=== PATIENT | female | born 1975 | race Caucasian/White ===

== ENCOUNTER 2018-11-05 15:20 | Emergency (ER) | payer OTHER ==
--- NOTE | 2018-11-05 17:42 | RAD REPORT ---
EXAM DESCRIPTION: RAD - Foot Right 3 View - 11/05/2018 5:30 pm CLINICAL HISTORY: Right foot pain FINDINGS: No fracture or dislocation is seen Moderate to large spurs extend off of posterior and inferior aspect of the calcaneus
--- NOTE | 2018-11-05 17:49 | EDPHYS ---
Physician Documentation [facility] Name: Beatriz Chapman Age: 43 yrs Sex: Female : 1975 Arrival Date: 11/05/2018 Time: 15:24 Bed 12 Private MD: ED Physician Giacomo Ruelas HPI: 11/05 17:24 This 43 yrs old Female presents to ER via Ambulatory with complaints of Feet rn Swelling. 17:24 The patient presents with pain. The complaints affect the right foot. Onset: The rn symptoms/episode began/occurred 3 day(s) ago. Modifying factors: the symptoms are aggravated by weight bearing. Severity of symptoms: At their worst the symptoms were mild, in the emergency department the symptoms are unchanged. The patient has not experienced similar symptoms in the past. Reports stepped wrong when getting off bed a few days ago, has been having right foot pain since then, hurts to walk on it, no known gout or bone problems. No other pain.. 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 - Social history:: Smoking status: Patient/guardian denies using tobacco, Patient/guardian denies using alcohol, street drugs. - Ebola Screening: : Patient negative for fever greater than or equal to 101.5 degrees Fahrenheit, and additional compatible Ebola Virus Disease symptoms Patient denies exposure to infectious person Patient denies travel to an Ebola-affected area in the 21 days before illness onset No symptoms or risks identified at this time. - Family history:: not pertinent. - Hospitalizations: : No recent hospitalization is reported. ROS: 17:24 MS/Extremity: Negative for deformity Skin: Negative for rash, and discoloration rn Exam: 17:24 Constitutional: This is a well developed, well nourished patient who is awake, alert, rn and in no acute distress. MS/ Extremity: Pulses equal, no cyanosis. Neurovascular intact. + mild tenderness at base of 5th metatarsal, no deformity, no skin changes. No open wounds. Vital Signs: 15:44 BP 174 / 97; Pulse 80; Resp 16; Temp 98.7; Pulse Ox 100% on R/A; Weight 135.17 kg; Height 5 ft. 2 in. (157.48 cm); Pain 6/10; 17:50 BP 155 / 91; Pulse 78; Resp 16; Pulse Ox 98% on R/A; Pain 6/10; ls4 15:44 Body Mass Index 54.50 (135.17 kg, 157.48 cm) MDM: 16:22 Patient medically screened. rn 17:47 Differential diagnosis: fracture, sprain, arthritis. Data reviewed: vital signs, nurses rn notes, radiologic studies, plain films, and as a result, I will discharge patient. Counseling: I had a detailed discussion with the patient and/or guardian regarding: the historical points, exam findings, and any diagnostic results supporting the discharge/admit diagnosis, radiology results, the need for outpatient follow up, to return to the emergency department if symptoms worsen or persist or if there are any questions or concerns that arise at home. Special discussion: I discussed with the patient/guardian in detail that at this point there is no indication for admission to the hospital. It is understood, however, that if the symptoms persist or worsen the patient needs to return immediately for re-evaluation. 11/05 16:33 Order name: XRAY Foot RIGHT 3 View; Complete Time: 17:47 rn Administered Medications: No medications were administered Disposition: 11/05/18 17:48 Discharged to Home. Impression: Unspecified sprain of right foot. - Condition is Stable. - Discharge Instructions: Foot Sprain, Heel Spur. - Medication Reconciliation Form, Thank You Letter, Antibiotic Education, Prescription Opioid Use form. - Follow up: Private Physician; When: As needed; Reason: Recheck today's complaints, Re-evaluation by your physician. - Problem is an ongoing problem. - Symptoms have improved. Signatures: Dispatcher [employer] EDMS Karol Casas RN RN Giacomo Ruelas MD MD rn Stewart, Lisa, RN RN ls4 Corrections: (The following items were deleted from the chart) 17:58 17:48 11/05/2018 17:48 Discharged to Home. Impression: Unspecified sprain of right ls4 foot. Condition is Stable. Forms are Medication Reconciliation Form, Thank You Letter, Antibiotic Education, Prescription Opioid Use. Follow up: Private Physician; When: As needed; Reason: Recheck today's complaints, Re-evaluation by your physician. Problem is an ongoing problem. Symptoms have improved. rn
--- NOTE | 2018-11-05 17:49 | ER ---
Nurse's Notes [facility] Name: Beatriz Chapman Age: 43 yrs Sex: Female : 1975 Arrival Date: 11/05/2018 Time: 15:24 Bed 12 Private MD: Diagnosis: Unspecified sprain of right foot Presentation: 11/05 15:41 Presenting complaint: Patient states: R foot pain and swelling on and off for several ch days, no trauma. Transition of care: patient was not received from another setting of care. Onset of symptoms was November 02, 2018. Risk Assessment: Do you want to hurt yourself or someone else? Patient reports no desire to harm self or others. Initial Sepsis Screen: Does the patient meet any 2 criteria? No. Patient's initial sepsis screen is negative. Does the patient have a suspected source of infection? No. Patient's initial sepsis screen is negative. Care prior to arrival: Medication(s) given: Motrin, 1230. 15:41 Method Of Arrival: Ambulatory 15:41 Acuity: DANIELA 3 ch Triage Assessment: 15:44 General: Appears in no apparent distress. comfortable, Behavior is calm, cooperative, ch appropriate for age. Pain: Complains of pain in right foot Pain currently is 6 out of 10 on a pain scale. 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 - Social history:: Smoking status: Patient/guardian denies using tobacco, Patient/guardian denies using alcohol, street drugs. - Ebola Screening: : Patient negative for fever greater than or equal to 101.5 degrees Fahrenheit, and additional compatible Ebola Virus Disease symptoms Patient denies exposure to infectious person Patient denies travel to an Ebola-affected area in the 21 days before illness onset No symptoms or risks identified at this time. - Family history:: not pertinent. - Hospitalizations: : No recent hospitalization is reported. Screenin:45 Abuse screen: Denies threats or abuse. Denies injuries from another. Nutritional ls4 screening: No deficits noted. Tuberculosis screening: No symptoms or risk factors identified. Fall Risk None identified. Vital Signs: 15:44 BP 174 / 97; Pulse 80; Resp 16; Temp 98.7; Pulse Ox 100% on R/A; Weight 135.17 kg; Height 5 ft. 2 in. (157.48 cm); Pain 6/10; 17:50 BP 155 / 91; Pulse 78; Resp 16; Pulse Ox 98% on R/A; Pain 6/10; ls4 15:44 Body Mass Index 54.50 (135.17 kg, 157.48 cm) ED Course: 15:24 Patient arrived in ED. mr 15:43 Triage completed. 15:44 Arm band placed on left wrist. Patient placed in an exam room, on a stretcher. 16:03 Bessie Delgadillo, LE is Primary Nurse. ls4 16:22 Giacomo Ruelas MD is Attending Physician. rn 17:36 XRAY Foot RIGHT 3 View In Process Unspecified. EDMS 17:45 Patient has correct armband on for positive identification. Placed in gown. Bed in low ls4 position. Call light in reach. Side rails up X 1. Warm blanket given. 17:46 No provider procedures requiring assistance completed. Patient did not have IV access ls4 during this emergency room visit. Administered Medications: No medications were administered Outcome: 17:48 Discharge ordered by . rn 17:58 Patient left the ED. ls4 Signatures: Dispatcher [employer] EDMS Karol Casas RN RN Lety Trent mr Giacomo Ruelas MD MD rn Stewart, Lisa, RN RN ls4 Corrections: (The following items were deleted from the chart) 15:43 15:41 Care prior to arrival: None. [facility]
[2018-11-05 18:22] VITALS: TEMP 98.7
[2018-11-05 18:24] VITALS: BP 155/91; O2SAT 98
== END 2018-11-05 17:58 | disposition home or self-care (01) ==
LOC: ER 15:20
DX: S93.601A Unspecified sprain of right foot, initial encounter (principal); X58.XXXA Exposure to other specified factors, initial encounter; Y93.89 Activity, other specified; Y92.003 Bedroom of unspecified non-institutional (private) residence as the place of occurrence of the external cause; Z88.0 Allergy status to penicillin
CPT/HCPCS: 99282

== ENCOUNTER 2019-02-26 11:01 | Emergency (ER) | payer OTHER ==
--- NOTE | 2019-02-26 11:34 | ER ---
Nurse's Notes [facility] Name: Beatriz Chapman Age: 43 yrs Sex: Female : 1975 Arrival Date: 02/26/2019 Time: 11:03 Bed 19 Private MD: Aj Aguiar Diagnosis: Low back pain Presentation: 02/26 11:08 Presenting complaint: Patient states: Low back pain for 6 months that got worse 2 days aj ago. Managed with Ibuprofen. Ambulated with smooth steady gait to triage. Care prior to arrival: None. 11:08 Acuity: DANIELA 4 aj 11:30 Transition of care: patient was not received from another setting of care. Onset of iw symptoms was September 2018. Risk Assessment: Do you want to hurt yourself or someone else? Patient reports no desire to harm self or others. Initial Sepsis Screen: Does the patient meet any 2 criteria? No. Patient's initial sepsis screen is negative. Does the patient have a suspected source of infection? No. Patient's initial sepsis screen is negative. 11:30 Method Of Arrival: Ambulatory iw 19:25 Onset of symptoms is unknown. iw Triage Assessment: 11:09 General: Appears in no apparent distress. comfortable, Behavior is calm, cooperative, aj appropriate for age. Pain: Complains of pain in low back area. Neuro: Level of Consciousness is awake, alert, obeys commands, Oriented to person, place, time, situation, Appropriate for age. Respiratory: Airway is patent Respiratory effort is even, unlabored, Respiratory pattern is regular, symmetrical. Derm: Skin is intact, is healthy with good turgor, Skin is pink, warm \T\ dry. normal. Musculoskeletal: Circulation, motion, and sensation intact. Range of motion: intact in all extremities, Reports pain in low back area. 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 - Social history:: Smoking status: unknown. - Ebola Screening: : Patient negative for fever greater than or equal to 101.5 degrees Fahrenheit, and additional compatible Ebola Virus Disease symptoms Patient denies exposure to infectious person Patient denies travel to an Ebola-affected area in the 21 days before illness onset No symptoms or risks identified at this time. Screenin:53 Abuse screen: Denies threats or abuse. Denies injuries from another. Nutritional iw screening: No deficits noted. Tuberculosis screening: No symptoms or risk factors identified. Fall Risk None identified. Assessment: 11:30 General: Appears in no apparent distress. Behavior is calm, cooperative. Pain: iw Complains of pain in low back area. Neuro: Level of Consciousness is awake, alert, obeys commands. Cardiovascular: Patient's skin is warm and dry. Respiratory: Respiratory effort is even, unlabored, Respiratory pattern is regular, symmetrical. GI: No signs and/or symptoms were reported involving the gastrointestinal system. Derm: Skin is intact, is healthy with good turgor. Musculoskeletal: Range of motion: intact in all extremities. Vital Signs: 11:09 BP 189 / 74; Pulse 75; Resp 16; Temp 98.1; Pulse Ox 100% on R/A; Weight 131.54 kg; aj Height 5 ft. 1 in. (154.94 cm); 11:09 Body Mass Index 54.79 (131.54 kg, 154.94 cm) aj ED Course: 11:03 Patient arrived in ED. as 11:03 Aj Aguiar MD is Private Physician. as 11:08 Patient has correct armband on for positive identification. iw 11:09 Triage completed. aj 11:11 Arm band placed on left wrist. Patient placed in waiting room, Patient notified of wait aj time. 11:12 [facility]C [facility]. kb 11:12 Aubrey Arias MD is Attending Physician. kb 11:26 Sherrill See, RN is Primary Nurse. iw 11:53 No provider procedures requiring assistance completed. Patient did not have IV access iw during this emergency room visit. Administered Medications: 11:44 Drug: predniSONE 40 mg Route: PO; iw Outcome: 11:33 Discharge ordered by MD. kb 11:53 Discharged to home ambulatory. iw 11:53 Condition: good 11:53 Discharge instructions given to patient, Instructed on discharge instructions, follow up and referral plans. medication usage, Demonstrated understanding of instructions, follow-up care, medications, Prescriptions given X 2. 11:54 Patient left the ED. iw Signatures: Elizabeth Smith FNP-C FNP-Ckb Myers, Amanda, RN RN Stormy Earl as Sherrill See RN RN iw Corrections: (The following items were deleted from the chart) : 11:08 Presenting complaint: Patient states: Low back pain for 6 months that got worse 2 aj days ago. Managed with Ibuprofen marty : 11:09 Allergies: PENICILLINS; marty iw
--- NOTE | 2019-02-26 11:34 | EDPHYS ---
Physician Documentation [facility] Name: Beatriz Chapman Age: 43 yrs Sex: Female : 1975 Arrival Date: 02/26/2019 Time: 11:03 Bed 19 Private MD: Aj Aguiar ED Physician Aubrey Arias HPI: 02/26 11:19 This 43 yrs old Female presents to ER via Unassigned with complaints of Back kb Pain. 11:19 The patient presents with pain that is chronic, with no known mechanism of injury. The kb symptoms are located in the low back. Onset: The symptoms/episode began/occurred 6 month(s) ago. The pain does not radiate. Associated signs and symptoms: Pertinent positives: none. The problem was sustained from unknown cause. Modifying factors: The patient symptoms are alleviated by nothing, the patient symptoms are aggravated by any movement. Severity of symptoms: At their worst the symptoms were moderate, in the emergency department the symptoms are unchanged. The patient has not experienced similar symptoms in the past. The patient has not recently seen a physician. Pt reports pain across entire low back for 6+ months. States she had been taking 800mg ibuprofen up to 6 times per day, but it hasn't been working for the past 2 days. Denies injury or trauma. Worse when bending. Denies urinary symptoms. Has not seen anyone for this pain before. . 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 - Social history:: Smoking status: unknown. - Ebola Screening: : Patient negative for fever greater than or equal to 101.5 degrees Fahrenheit, and additional compatible Ebola Virus Disease symptoms Patient denies exposure to infectious person Patient denies travel to an Ebola-affected area in the 21 days before illness onset No symptoms or risks identified at this time. ROS: 11:18 Constitutional: Negative for fever, chills, and weight loss, Cardiovascular: Negative kb for chest pain, palpitations, and edema, Respiratory: Negative for shortness of breath, cough, wheezing, and pleuritic chest pain, Abdomen/GI: Negative for abdominal pain, nausea, vomiting, diarrhea, and constipation, : Negative for injury, bleeding, discharge, and swelling, MS/Extremity: Negative for injury and deformity, Skin: Negative for injury, rash, and discoloration, Neuro: Negative for headache, weakness, numbness, tingling, and seizure. 11:18 Back: Positive for pain at rest, pain with movement, of the low back area. Exam: 11:18 Constitutional: This is a well developed, well nourished patient who is awake, alert, kb and in no acute distress. Head/Face: Normocephalic, atraumatic. Chest/axilla: Normal chest wall appearance and motion. Nontender with no deformity. No lesions are appreciated. Cardiovascular: Regular rate and rhythm with a normal S1 and S2. No gallops, murmurs, or rubs. Normal PMI, no JVD. No pulse deficits. Respiratory: Lungs have equal breath sounds bilaterally, clear to auscultation and percussion. No rales, rhonchi or wheezes noted. No increased work of breathing, no retractions or nasal flaring. Abdomen/GI: Soft, non-tender, with normal bowel sounds. No distension or tympany. No guarding or rebound. No evidence of tenderness throughout. Skin: Warm, dry with normal turgor. Normal color with no rashes, no lesions, and no evidence of cellulitis. MS/ Extremity: Pulses equal, no cyanosis. Neurovascular intact. Full, normal range of motion. Neuro: Awake and alert, GCS 15, oriented to person, place, time, and situation. Cranial nerves II-XII grossly intact. Motor strength 5/5 in all extremities. Sensory grossly intact. Cerebellar exam normal. Normal gait. 11:18 Back: pain, that is moderate, of the low back area, ROM is normal, normal spinal alignment noted, CVA tenderness, is absent. Vital Signs: 11:09 BP 189 / 74; Pulse 75; Resp 16; Temp 98.1; Pulse Ox 100% on R/A; Weight 131.54 kg; aj Height 5 ft. 1 in. (154.94 cm); 11:09 Body Mass Index 54.79 (131.54 kg, 154.94 cm) aj MDM: 11:12 Patient medically screened. kb 11:17 Data reviewed: vital signs, nurses notes. Data interpreted: Pulse oximetry: on room air kb is 100 %. Interpretation: normal. Counseling: I had a detailed discussion with the patient and/or guardian regarding: the historical points, exam findings, and any diagnostic results supporting the discharge/admit diagnosis, lab results, the need for outpatient follow up, a family practitioner, to return to the emergency department if symptoms worsen or persist or if there are any questions or concerns that arise at home. 02/26 11:33 Order name: Urine Dipstick--Ancillary (enter results) ms 02/26 11:17 Order name: Urine Dipstick-Ancillary (obtain specimen); Complete Time: 11:27 kb Administered Medications: 11:44 Drug: predniSONE 40 mg Route: PO; iw Disposition: 17:14 Co-signature as Attending Physician, Aubrey Arias MD I agree with the assessment and kdr plan of care. Disposition: 02/26/19 11:33 Discharged to Home. Impression: Low back pain. - Condition is Stable. - Discharge Instructions: Back Injury Prevention, [id number], Back Pain, Adult, [id number], Back Exercises, [id number]. - Prescriptions for Prednisone 20 mg Oral Tablet - take 1 tablet by ORAL route once daily for 5 days; 5 tablet. Cyclobenzaprine 10 mg Oral Tablet - take 1 tablet by ORAL route every 8 hours As needed; 21 tablet. Tramadol 50 mg Oral Tablet - take 1 tablet by ORAL route every 8 hours as needed; 12 tablet. - Medication Reconciliation Form, Thank You Letter, Antibiotic Education, Prescription Opioid Use, Work release form form. - Follow up: Emergency Department; When: As needed; Reason: Worsening of condition. Follow up: Private Physician; When: 2 - 3 days; Reason: Recheck today's complaints, Continuance of care, Re-evaluation by your physician. Signatures: Dispatcher [employer] EDElizabeth Miguel, RACHEL-C INSPECTOR RETURNED [employer]ERIALS-Ankita Washington RN RN aj Rittger, Kevin, MD MD kdr Sherrill See RN RN iw Corrections: (The following items were deleted from the chart) 11:52 11:19 Pt reports pain across entire low back for 6+ months. kb kb 11:54 11:33 02/26/2019 11:33 Discharged to Home. Impression: Low back pain. Condition is iw Stable. Forms are Medication Reconciliation Form, Thank You Letter, Antibiotic Education, Prescription Opioid Use. Follow up: Emergency Department; When: As needed; Reason: Worsening of condition. Follow up: Private Physician; When: 2 - 3 days; Reason: Recheck today's complaints, Continuance of care, Re-evaluation by your physician. kb 19:25 11:09 Allergies: PENICILLINS; aj iw
[2019-02-26] MEDS ORDERED: predniSONE 20 MG TAB ONE (11:56)
[2019-02-26 12:07] VITALS: BP 189/74; TEMP 98.1; O2SAT 100
[2019-02-26 12:53] LABS: Urine Blood TRACE (NEG); Urine Glucose NEGATIVE (NEG); Urine Protein NEGATIVE (NEG); Urine Specific Gravity 1.015 (1.005-1.030)
== END 2019-02-26 11:54 | disposition home or self-care (01) ==
LOC: ER 11:01
DX: M54.5 Low back pain (principal); Z88.0 Allergy status to penicillin
CPT/HCPCS: 81003; 99283; J7512

== ENCOUNTER 2023-02-25 17:24 | Emergency (ER) | payer BC ==
[2023-02-25] MEDS ORDERED: IBUPROFEN 400 MG TAB ONE (18:10)
--- NOTE | 2023-02-25 19:13 | RAD REPORT ---
EXAM DESCRIPTION: RAD - Foot Right 3 View - 02/25/2023 6:39 pm CLINICAL HISTORY: PAIN COMPARISON: Foot Right 3 View dated 11/05/2018 FINDINGS: Thin lucency is seen involving the base of the fifth metatarsal compatible with a nondispl aced fracture. Large posterior and plantar calcaneal spurs. No dislocation.
--- NOTE | 2023-02-25 20:39 | ER ---
Nurse's Notes [facility] Name: Beatriz Chapman Age: 47 yrs Sex: Female : 1975 Arrival Date: 02/25/2023 Time: 17:24 Bed 11 Private MD: Aj Aguiar Diagnosis: Nondisplaced fracture of fifth metatarsal bone, right foot Presentation: 02/25 17:45 Chief complaint: Patient states: R foot pain after running to help child today. Had ll1 hurt that foot on also. Coronavirus screen: Client denies travel out of the [place] in the last 14 days. At this time, the client does not indicate any symptoms associated with coronavirus-19. Ebola Screen: Patient denies travel to an Ebola-affected area in the 21 days before illness onset. Initial Sepsis Screen: Does the patient meet any 2 criteria? No. Patient's initial sepsis screen is negative. Does the patient have a suspected source of infection? No. Patient's initial sepsis screen is negative. Risk Assessment: Do you want to hurt yourself or someone else? Patient reports no desire to harm self or others. Onset of symptoms was February 25, 2023. 17:45 Method Of Arrival: Ambulatory ll1 17:45 Acuity: DANIELA 4 ll1 Triage Assessment: 17:47 General: Appears uncomfortable, Behavior is calm, cooperative, appropriate for age. ll1 Pain: Complains of pain in R foot Quality of pain is described as aching. Musculoskeletal: Circulation, motion, and sensation intact. Capillary refill < 3 seconds. Injury Description: Bruise. Historical: - Allergies: 17:46 PENICILLINS; ll1 - PMHx: 17:46 None; ll1 - PSHx: 17:46 rotator cuff; section; ll1 - Immunization history:: Client reports receiving the 2nd dose of the Covid vaccine. - Social history:: Smoking status: Patient denies any tobacco usage or history of. Screenin:41 [facility] ED Fall Risk Assessment (Adult) Impaired Gait Yes (1 pt) Mobility Assist ll1 Device Used Yes (1 pt) Score/Fall Risk Level 0 - 2 = Low Risk Oriented to surroundings, Maintained a safe environment, Educated pt \T\ family on fall prevention, incl call for assistance when getting out of bed, Hourly rounding (assess needs \T\ fall precautionary measures) done. Abuse screen: Denies threats or abuse. Nutritional screening: No deficits noted. Tuberculosis screening: No symptoms or risk factors identified. Assessment: 18:03 Reassessment: No changes from previously documented assessment. Patient and/or family ll1 updated on plan of care and expected duration. Pain level reassessed. Patient is alert, oriented x 3, equal unlabored respirations, skin warm/dry/pink. Vital Signs: 17:45 BP 147 / 80; Pulse 89; Resp 17; Temp 98.7; Pulse Ox 100% ; Weight 87.09 kg; Height 5 ll1 ft. 2 in. ; Pain 9/10; 17:45 Body Mass Index 35.12 (87.09 kg, 157.48 cm) ll1 17:45 Pain Scale: Adult ll1 ED Course: 17:29 Patient arrived in ED. am2 17:35 Aj Aguiar MD is Private Physician. im 17:46 Triage completed. ll1 17:46 Praveen Woodruff PA is PHCP. cp 17:46 Praveen Trivedi MD is Attending Physician. cp 17:47 Arm band placed on. ll1 18:41 XRAY Foot RIGHT 3 View In Process Unspecified. EDMS 18:41 Patient has correct armband on for positive identification. Cardiac monitoring not ll1 applicable on this patient. 18:56 Regis Rosas, RN is Primary Nurse. rv 20:00 Crutch training done. Orthoglass splint: Posterior short lleg splint applied on right rv leg. 20:00 No provider procedures requiring assistance completed. Patient did not have IV access rv during this emergency room visit. 20:38 Jesse Gaxiola MD is Referral Physician. cp Administered Medications: 18:03 Drug: Ibuprofen PO 800 mg Route: PO; ll1 Medication: 18:41 VIS not applicable for this client. ll1 Outcome: 20:30 Condition: improved rv 20:30 Discharged to home with crutches, with family. rv 20:30 Discharge instructions given to patient, Instructed on discharge instructions, follow up and referral plans. medication usage, crutch walking, Demonstrated understanding of instructions, follow-up care, medications, crutch walking, Prescriptions given X 2. 20:39 Discharge ordered by . cp 21:06 Patient left the ED. rv Signatures: Dispatcher [employer] EDMS Page, Praveen, PA PA cp Marquez, Ankita am2 Regis Rosas, RN RN rv Tee El RN RN 1 Shelly Miller
--- NOTE | 2023-02-25 20:39 | EDPHYS ---
Physician Documentation [facility] Name: Beatriz Chapman Age: 47 yrs Sex: Female : 1975 Arrival Date: 02/25/2023 Time: 17:24 Bed 11 Private MD: Aj Aguiar ED Physician Praveen Trivedi HPI: 02/25 18:00 This 47 yrs old Female presents to ER via Ambulatory with complaints of Foot Injury. cp 18:00 The patient presents with pain, that is acute. The complaints affect the right foot. cp Context: resulted from a mis-step, while running, the patient can fully bear weight, the patient is able to ambulate, with moderate difficulty, Problem is a result from a previous injury: Yes. Onset: The symptoms/episode began/occurred today. Associated signs and symptoms: The patient has no apparent associated signs or symptoms. Historical: - Allergies: 17:46 PENICILLINS; ll1 - PMHx: 17:46 None; ll1 - PSHx: 17:46 rotator cuff; section; ll1 - Immunization history:: Client reports receiving the 2nd dose of the Covid vaccine. - Social history:: Smoking status: Patient denies any tobacco usage or history of. ROS: 18:05 MS/extremity: Positive for pain, tenderness, of the right foot. cp 18:05 Constitutional: Negative for body aches, chills, fever, poor PO intake. cp 18:05 Neck: Negative for pain with movement, pain at rest. 18:05 Back: Negative for pain at rest, pain with movement. 18:05 Neuro: Negative for numbness, weakness. 18:05 All other systems are negative. Exam: 18:10 Constitutional: The patient appears in no acute distress, alert, awake, well developed, cp well nourished. 18:10 Musculoskeletal/extremity: Extremities: grossly normal except: noted in the right foot: cp pain, tenderness to palpation noted lateral right foot, mild swelling, Perfusion: the extremity is normally perfused throughout, the right foot Sensation intact. Vital Signs: 17:45 BP 147 / 80; Pulse 89; Resp 17; Temp 98.7; Pulse Ox 100% ; Weight 87.09 kg; Height 5 ll1 ft. 2 in. ; Pain 9/10; 17:45 Body Mass Index 35.12 (87.09 kg, 157.48 cm) ll1 17:45 Pain Scale: Adult ll1 Procedures: 21:00 Splinting: Splint applied to right foot using Orthoglass splint, posterior short leg. cp applied by nurse. Examined by me, post splint application: neurovascular intact, Patient tolerated well. MDM: 17:49 Patient medically screened. cp 19:00 Differential diagnosis: closed fracture, sprain, dislocation. cp 20:38 Data reviewed: vital signs, nurses notes, radiologic studies, plain films. cp 20:38 I considered the following discharge prescriptions or medication management in the emergency department Medications were administered in the Emergency Department. See MAR. Counseling: I had a detailed discussion with the patient and/or guardian regarding: the historical points, exam findings, and any diagnostic results supporting the discharge/admit diagnosis, radiology results, the need for outpatient follow up, for definitive care, a orthopedic surgeon, to return to the emergency department if symptoms worsen or persist or if there are any questions or concerns that arise at home. Response to treatment: the patient's symptoms have markedly improved after treatment, and as a result, I will discharge patient. 02/25 17:49 Order name: XRAY Foot RIGHT 3 View; Complete Time: 19:35 cp 02/25 19:35 Interpretation: Report reviewed. cp 02/25 19:35 Order name: Splint - Posterior Leg; Complete Time: 20:22 cp 02/25 19:35 Order name: Crutches; Complete Time: 20:22 cp Administered Medications: 18:03 Drug: Ibuprofen PO 800 mg Route: PO; ll1 Disposition Summary: 02/25/23 20:39 Discharge Ordered Location: Home cp Problem: new cp Symptoms: have improved cp Condition: Stable cp Diagnosis - Nondisplaced fracture of fifth metatarsal bone, right foot cp Followup: cp - With: Jesse Gaxiola MD - When: 2 - 3 days - Reason: Recheck today's complaints Discharge Instructions: - Discharge Summary Sheet cp - Metatarsal Fracture cp Forms: - Medication Reconciliation Form cp - Thank You Letter cp - Antibiotic Education cp - Prescription Opioid Use cp Prescriptions: - Ibuprofen 800 mg Oral Tablet - take 1 tablet by ORAL route every 8 hours As needed take with food; 30 tablet; cp Refills: 0, Product Selection Permitted - Tramadol 50 mg Oral Tablet - take 1 tablet by ORAL route every 8 hours as needed; 12 tablet; Refills: 0, cp Product Selection Permitted Signatures: Dispatcher [employer] EDMS Praveen Woodruff PA PA cp Lewis, Lynsay, RN RN ll1
[2023-02-25 21:21] VITALS: BP 147/80; TEMP 98.7; O2SAT 100
== END 2023-02-25 21:06 | disposition home or self-care (01) ==
LOC: ER 17:24
DX: S92.354A Nondisplaced fracture of fifth metatarsal bone, right foot, initial encounter for closed fracture (principal); Y93.02 Activity, running; M79.671 Pain in right foot; Z88.0 Allergy status to penicillin
CPT/HCPCS: 99284

== ENCOUNTER 2023-07-29 14:25 | Emergency (ER) | payer BC ==
--- OUTSIDE RECORDS SUMMARY | 2023-07-29 14:51 | XMS REPORT | Continuity of Care Document ---
:1975 Author Organization [facility] t Address [address] [facility] [address] [place] [address] Care Team Providers Name Role Phone [email or web address]_S Attending Clinician Unavailable FOG_A_Provider Attending Clinician Unavailable [email or web address]_S Admitting Clinician Unavailable FOG_A_Provider Admitting Clinician Unavailable Payers Payer Name Policy Type Policy Number Effective Date Expiration Date S our[place] [id number] 2021 00:00:00 [place] ([place] Problems This patient has no known problems. Allergies, Adverse Reactions, Alerts This patient has no known allergies or adverse reactions. Medications This patient has no known medications. Procedures This patient has no known procedures. Encounters Start End Encounter Admission Attending Care Care Encounter Source Date/Time Date/Time Type Type Clinicians Facility Department ID 2023-07-03 2023-07-03 Outpatient GC_GCBZW_Ka PRIV PRIV [id number] [facility] 00:00:00 00:00:00 diyala_S [id number] Medic al 2023-02-26 2023-02-26 Outpatient FOG_A_Provi AOSM AOSM [id number] [facility] 00:00:00 00:00:00 nikos [id number] [facility] 2023-02-26 2023-02-26 Outpatient FOG_A_Provi AOSM AOSM [id number] [facility] 00:00:00 00:00:00 nikos [id number] [facility] Results This patient has no known results.
--- NOTE | 2023-07-29 16:02 | RAD REPORT ---
EXAM DESCRIPTION: CT - [id number] - 07/29/2023 3:13 pm CLINICAL HISTORY: Trauma, head and neck injury. WEAKNESS COMPARISON: No comparisons TECHNIQUE: Axial thin cut noncontrast CT images of the head were obtained. Axial thin cut noncontrast CT images of the cervical spine were obtained. Multiplanar reformatted images were generated and reviewed. All CT scans are performed using dose optimization technique as appropriate and may include automated exposure control or mA/KV adjustment according to patient size. FINDINGS: CT HEAD WITHOUT CONTRAST: No acute hemorrhage, hydrocephalus or extra-axial collection is identified.No areas of brain edema or midline shift. The paranasal sinuses are well aerated. Patchy left mastoid air cell opacification.The calvarium is i ntact. CT CERVICAL SPINE WITHOUT CONTRAST: No fracture or subluxation.Straightening of normal cervical lordosis which may be positional or secon ryan to muscle spasm. Developmental defect along the left posterior C1 arch.No prevertebral soft tiss ues swelling is identified. IMPRESSION: No acute traumatic intracranial or cervical spine findings. Straightening of normal cervical lordosis which may be positional or secondary to muscle spasm.
--- NOTE | 2023-07-29 17:35 | ER ---
Nurse's Notes [facility] Name: Beatriz Chapman Age: 48 yrs Sex: Female : 1975 Arrival Date: 07/29/2023 Time: 14:25 Bed 2 Private MD: Aj Aguiar Diagnosis: Injury of muscle(s) and tendon(s) of the rotator cuff of shoulder;Muscle weakness (generalized)-left upper arm Presentation: 07/29 14:38 Chief complaint: Patient states: LEFT UPPER ARM PAIN. STATES ON SUNDAY AFTERNOON db STARTED WITH SPASM AND TWITCHING AND THEN UNABLE TO RAISE LEFT ARM. ABLE TO MOVE HANDS. ARM FALLS IF PICKED UP. Coronavirus screen: At this time, the client does not indicate any symptoms associated with coronavirus-19. Coronavirus screen: Vaccine status: Patient reports receiving the 2nd dose of the covid vaccine. Client denies travel out of the [place] in the last 14 days. Ebola Screen: Patient negative for fever greater than or equal to 101.5 degrees Fahrenheit, and additional compatible Ebola Virus Disease symptoms Patient denies exposure to infectious person. Patient denies travel to an Ebola-affected area in the 21 days before illness onset. No symptoms or risks identified at this time. Initial Sepsis Screen: Does the patient meet any 2 criteria? No. Patient's initial sepsis screen is negative. Does the patient have a suspected source of infection? No. Patient's initial sepsis screen is negative. Risk Assessment: Do you want to hurt yourself or someone else? Patient reports no desire to harm self or others. Onset of symptoms was July 25, 2023. 14:38 Method Of Arrival: Ambulatory db 14:38 Acuity: DANIELA 3 db Triage Assessment: 14:41 General: Appears in no apparent distress. comfortable, Behavior is calm, cooperative. db Neuro: Level of Consciousness is awake, alert, obeys commands, Oriented to person, place, time, situation. Respiratory: Airway is patent Respiratory effort is even, unlabored, Respiratory pattern is regular, symmetrical. Musculoskeletal: Reports weakness in left arm since X 4 DAYS. Historical: - Allergies: 14:41 PENICILLINS; db - PSHx: 14:41 section; rotator cuff; db - Immunization history:: Adult Immunizations unknown. - Social history:: Smoking status: Patient denies any tobacco usage or history of. Screenin:29 [facility] ED Fall Risk Assessment (Adult) History of falling in the last 3 months, ph including since admission No falls in past 3 months (0 pts). Abuse screen: Denies threats or abuse. Denies injuries from another. Nutritional screening: No deficits noted. Tuberculosis screening: No symptoms or risk factors identified. Vital Signs: 14:38 BP 138 / 83; Pulse 79; Resp 16; Temp 99(O); Pulse Ox 100% on R/A; Weight 90.26 kg; db Height 5 ft. 3 in. ; Pain 8/10; 14:38 Body Mass Index 35.25 (90.26 kg, 160.02 cm) db 14:38 Pain Scale: Adult db NIH Stroke Scale Scores: 14:43 NIHSS Score: 2 db ED Course: 14:27 Patient arrived in ED. as 14:28 Aj Aguiar MD is Private Physician. as 14:40 Triage completed. db 14:42 Arm band placed on right wrist. Patient placed in waiting room. db 14:45 Angie Olivas FNP-C is PHCP. snw 14:45 Praveen Trivedi MD is Attending Physician. snw 15:15 CT Head C Spine In Process Unspecified. EDMS 17:28 Elisa Mejia, RN is Primary Nurse. ph 17:31 Patient has correct armband on for positive identification. Bed in low position. Call ph light in reach. Side rails up X 1. Pulse ox on. NIBP on. Door closed. Noise minimized. Warm blanket given. 17:34 Jesse Gaxiola MD is Referral Physician. snw Administered Medications: 17:46 Drug: Diazepam PO 5 mg PO once Route: PO; ph 17:46 Drug: predniSONE PO 40 mg PO once Route: PO; ph 17:46 Drug: Famotidine PO 20 mg PO once Route: PO; ph Medication: 17:31 VIS not applicable for this client. ph Outcome: 17:35 Discharge ordered by . snw 18:35 Patient left the ED. ls5 NIH Stroke Scale - NIH Stroke Score Date: 07/29/2023 Time: 14:43 Total Score = 2 10. Dysarthria (speech clarity - read or repeat words) - 0(Normal) 11. Extinction and Inattention (visual/tactile/auditory/spatial/personal) - 0(No abnormality) 1a. Level of Consciousness (LOC) - 0(Alert) 1b. Level of Consciousness (LOC) (Month \T\ Age) - 0(Both) 1c. LOC Commands (Open \T\ Closes Eyes/Supervisor Metal Furniture Assembly) - 0(Both) 2. Best Gaze (Lateral Gaze Paresis) - 0(Normal) 3. Visual Field Loss - 0(No visual loss) 4. Facial Palsy - 0(Normal) 5a. Left Arm: Motor (10-second hold) - 2(Drift, some effort against gravity) 5b. Right Arm: Motor (10-second hold) - 0(No drift) 6a. Left Leg: Motor (5-second hold - always test supine) - 0(No drift) 6b. Right Leg: Motor (5-second hold - always test supine) - 0(No drift) 7. Limb Ataxia (finger/nose \T\ heel/hardy - test with eyes open) - 0(Absent) 8. Sensory Loss (pinprick arms/legs/face) - 0(Normal) 9. Best Language: Aphasia (description/naming/reading) - 0(No aphasia) Initials: db Signatures: Dispatcher [employer] EDMS Angie Olivas, RACHEL-C PSYCHIATRIC MENTAL HEALTH NURSE-Csnw Stormy Hernández Patricia, RN RN Mily Gilmore, RN RN db Diallo [email or web address] Corrections: (The following items were deleted from the chart) 14:41 14:38 Onset of symptoms was July 29, 2023 db db
--- NOTE | 2023-07-29 17:35 | EDPHYS ---
Physician Documentation [facility] Name: Beatriz Chapman Age: 48 yrs Sex: Female : 1975 Arrival Date: 07/29/2023 Time: 14:25 Bed 2 Private MD: Aj Aguiar ED Physician Praveen Trivedi HPI: 07/29 17:59 This 48 yrs old Female presents to ER via Ambulatory with complaints of Arm Pain - LEFT snw ARM WEAKNESS. Historical: - Allergies: 14:41 PENICILLINS; db - PSHx: 14:41 section; rotator cuff; db - Immunization history:: Adult Immunizations unknown. - Social history:: Smoking status: Patient denies any tobacco usage or history of. ROS: 17:55 Constitutional: Negative for fever, chills, and weight loss, Eyes: Negative for injury, snw pain, redness, and discharge, ENT: Negative for injury, pain, and discharge, Neck: Negative for injury, pain, and swelling, Cardiovascular: Negative for chest pain, palpitations, and edema, Respiratory: Negative for shortness of breath, cough, wheezing, and pleuritic chest pain, Abdomen/GI: Negative for abdominal pain, nausea, vomiting, diarrhea, and constipation, Back: Negative for injury and pain, : Negative for injury, bleeding, discharge, and swelling, Skin: Negative for injury, rash, and discoloration, Neuro: Negative for headache, weakness, numbness, tingling, and seizure, Psych: Negative for depression, anxiety, suicide ideation, homicidal ideation, and hallucinations, 17:55 MS/extremity: Positive for decreased range of motion, weakness, unable to maintain abduction of left arm, Exam: 17:47 Constitutional: This is a well developed, well nourished patient who is awake, alert, snw and in no acute distress. Head/Face: Normocephalic, atraumatic. Eyes: Pupils equal round and reactive to light, extra-ocular motions intact. Lids and lashes normal. Conjunctiva and sclera are non-icteric and not injected. Cornea within normal limits. Periorbital areas with no swelling, redness, or edema. ENT: Nares patent. No nasal discharge, no septal abnormalities noted. Tympanic membranes are normal and external auditory canals are clear. Oropharynx with no redness, swelling, or masses, exudates, or evidence of obstruction, uvula midline. Mucous membranes moist. Neck: Trachea midline, no thyromegaly or masses palpated, and no cervical lymphadenopathy. Supple, full range of motion without nuchal rigidity, or vertebral point tenderness. No Meningismus. Chest/axilla: Normal chest wall appearance and motion. Nontender with no deformity. No lesions are appreciated. Cardiovascular: Regular rate and rhythm with a normal S1 and S2. No gallops, murmurs, or rubs. Normal PMI, no JVD. No pulse deficits. Respiratory: Lungs have equal breath sounds bilaterally, clear to auscultation and percussion. No rales, rhonchi or wheezes noted. No increased work of breathing, no retractions or nasal flaring. Abdomen/GI: Soft, non-tender, with normal bowel sounds. No distension or tympany. No guarding or rebound. No evidence of tenderness throughout. Back: No spinal tenderness. No costovertebral tenderness. Full range of motion. Skin: Warm, dry with normal turgor. Normal color with no rashes, no lesions, and no evidence of cellulitis. Neuro: Awake and alert, GCS 15, oriented to person, place, time, and situation. Cranial nerves II-XII grossly intact. Motor strength 5/5 in all extremities. Sensory grossly intact. Cerebellar exam normal. Normal gait. Psych: Awake, alert, with orientation to person, place and time. Behavior, mood, and affect are within normal limits. 17:47 Musculoskeletal/extremity: Extremities: grossly normal except: noted in the left arm: decreased ROM, unable to maintain abduction, pt with hx of left rotator cuff repair. denies color changes in left arm but states + muscle spasm, Vital Signs: 14:38 BP 138 / 83; Pulse 79; Resp 16; Temp 99(O); Pulse Ox 100% on R/A; Weight 90.26 kg; db Height 5 ft. 3 in. ; Pain 8/10; 14:38 Body Mass Index 35.25 (90.26 kg, 160.02 cm) db 14:38 Pain Scale: Adult db NIH Stroke Scale Scores: 14:43 NIHSS Score: 2 db MDM: 14:48 Patient medically screened. snw 17:58 Differential diagnosis: tendonitis, cervical radiculopathy. Data reviewed: vital signs, snw nurses notes, radiologic studies. I considered the following discharge prescriptions or medication management in the emergency department Medications were administered in the Emergency Department. See MAR. Counseling: I had a detailed discussion with the patient and/or guardian regarding the historical points, exam findings, and any diagnostic results supporting the discharge/admit diagnosis, the presence of at least one elevated blood pressure reading (>120/80) during this emergency department visit, radiology results, the need for outpatient follow up, for definitive care, to return to the emergency department if symptoms worsen or persist or if there are any questions or concerns that arise at home. Special discussion: I have referred the patient to see his PCP for further evaluation of high blood pressure. Based on the history and exam findings, there is no indication for further emergent testing or inpatient evaluation. I discussed with the patient/guardian the need to see the orthopedic surgeon for further evaluation of the symptoms. 07/29 14:45 Order name: CT Head C Spine; Complete Time: 16:03 snw Administered Medications: 17:46 Drug: Diazepam PO 5 mg PO once Route: PO; ph 17:46 Drug: predniSONE PO 40 mg PO once Route: PO; ph 17:46 Drug: Famotidine PO 20 mg PO once Route: PO; ph Disposition Summary: 07/29/23 17:35 Discharge Ordered Notes: Location: Home snw Condition: Stable snw Diagnosis - Injury of muscle(s) and tendon(s) of the rotator cuff of shoulder snw - Muscle weakness (generalized) - left upper arm snw Followup: snw - With: Emergency Department - When: As needed - Reason: Worsening of condition Followup: snw - With: Jesse Gaxiola MD - When: 2 - 3 days - Reason: Recheck today's complaints, Continuance of care, Re-evaluation by your physician Discharge Instructions: - Discharge Summary Sheet snw - Weakness snw - Myopathy snw Forms: - Medication Reconciliation Form snw - Thank You Letter snw - Antibiotic Education snw - Prescription Opioid Use snw - Patient Portal Instructions snw - Leadership Thank You Letter snw Prescriptions: - Prednisone 20 mg Oral Tablet - take 2 tablets ORAL route once daily for 5 days; 10 tablet; Refills: 0, Product snw Selection Permitted - orphenadrine citrate 100 mg Oral Tablet Sustained Release - take 1 tablet ORAL route 2 times per day As needed; 20 tablet; Refills: 0, snw Product Selection Permitted - Pepcid 20 mg Oral Tablet - take 1 tablet ORAL route once daily; 20 tablet; Refills: 0, Product Selection snw Permitted NIH Stroke Scale - NIH Stroke Score Date: 07/29/2023 Time: 14:43 Total Score = 2 10. Dysarthria (speech clarity - read or repeat words) - 0(Normal) 11. Extinction and Inattention (visual/tactile/auditory/spatial/personal) - 0(No abnormality) 1a. Level of Consciousness (LOC) - 0(Alert) 1b. Level of Consciousness (LOC) (Month \T\ Age) - 0(Both) 1c. LOC Commands (Open \T\ Closes Eyes/Technical Sourcing Recruiter) - 0(Both) 2. Best Gaze (Lateral Gaze Paresis) - 0(Normal) 3. Visual Field Loss - 0(No visual loss) 4. Facial Palsy - 0(Normal) 5a. Left Arm: Motor (10-second hold) - 2(Drift, some effort against gravity) 5b. Right Arm: Motor (10-second hold) - 0(No drift) 6a. Left Leg: Motor (5-second hold - always test supine) - 0(No drift) 6b. Right Leg: Motor (5-second hold - always test supine) - 0(No drift) 7. Limb Ataxia (finger/nose \T\ heel/hardy - test with eyes open) - 0(Absent) 8. Sensory Loss (pinprick arms/legs/face) - 0(Normal) 9. Best Language: Aphasia (description/naming/reading) - 0(No aphasia) Initials: db Signatures: Dispatcher [employer] Angie Interiano, MANAGER TRANSPORTATION-C MANAGER TRANSPORTATION-Csnw Elisa Mejia, RN RN Mily Davila, RN RN db
[2023-07-29] MEDS ORDERED: FAMOTIDINE 20 MG TAB ONE (17:51)
[2023-07-29] MEDS ORDERED: DIAZEPAM 5 MG TABLET ONE (17:51)
[2023-07-29] MEDS ORDERED: predniSONE 20 MG TAB ONE (17:51)
[2023-07-29 19:22] VITALS: BP 138/83; TEMP 99; O2SAT 100
--- NOTE | 2023-07-30 15:08 | P.PN ---
Date of Service: 07/30/23 Patient with radiculopathy to the left arm. Unable to lift left arm because of pain. Pain control-[place] q8 prn severe pain
== END 2023-07-29 18:35 | disposition home or self-care (01) ==
LOC: ER 14:25
DX: S46.002A Unspecified injury of muscle(s) and tendon(s) of the rotator cuff of left shoulder, initial encounter (principal); M62.81 Muscle weakness (generalized); Z88.0 Allergy status to penicillin
CPT/HCPCS: 70450; 72125; 99284; J7512

== ENCOUNTER → 2023-11-27 | Emergency (ER) | payer BC ==
--- OUTSIDE RECORDS SUMMARY | 2023-11-27 07:22 | XMS REPORT | Continuity of Care Document ---
Author Name Unknown Address [address] [place] [address] thconnect Address [address] [facility] [address] [place] [address] Care Team Providers Care Photocopying Machine Operator Name Role Phone [email or web address]_S Attending Clinician Unavaila ble FOG_A_Provider Attending Clinician Unavailable [email or web address]_S Admitting Clinician Unavaila ble FOG_A_Provider Admitting Clinician Unavailable Payers Payer Name Policy Type Policy Number Effective Date Expirati on Date Source [place] [id number] 2021 00:00:00 Encounters Start Date/Time End Date/Time Encounter Type Admission Type Attending Clinicians Care Facility Care Department Encounter ID Source 2023-07-03 00:00:00 2023-07-03 00:00:00 Outpatient GC_GCBZW_Ka diyala_S PRIV PRIV [id number] [facility] 2023-02-26 00:00:00 2023-02-26 00:00:00 Outpatient FOG_A_Provi nikos AOSM AOSM [id number] [facility] 2023-02-26 00:00:00 2023-02-26 00:00:00 Outpatient FOG_A_Provi nikos AOSM AOSM [id number] [facility]
--- NOTE | 2023-11-27 07:50 | EDPHYS ---
Physician Documentation [facility] Name: Beatriz Chapman Age: 48 yrs Sex: Female : 1975 Arrival Date: 11/27/2023 Time: 07:20 Bed 13 Private MD: ED Physician Paulino John HPI: 11/26 07:50 This 48 yrs old Female presents to ER via Ambulatory with complaints of Cotton Stuck in rt Ear. 07:50 Patient presents to the ED with a foreign body to the right ear. Patient put a Q-tip in rt there, states that the entire head of the Q-tip came out. Denies pain, other acute complaints, symptoms are mild in severity, no other aggravating or alleviating factors.. 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 - Social history:: Smoking status: Patient denies any tobacco usage or history of. ROS: 07:50 Constitutional: Negative for fever, chills, and weight loss, Skin: Negative for injury, rt rash, and discoloration, Neuro: Negative for headache, weakness, numbness, tingling, and seizure, 07:50 ENT: Positive for Foreign body to right ear, negative for drainage, Exam: 07:50 Constitutional: This is a well developed, well nourished patient who is awake, alert, rt and in no acute distress. Skin: Warm, dry with normal turgor. Normal color with no rashes, no lesions, and no evidence of cellulitis. MS/ Extremity: Pulses equal, no cyanosis. Neurovascular intact. Full, normal range of motion. Neuro: Awake and alert, GCS 15, oriented to person, place, time, and situation. Cranial nerves II-XII grossly intact. Motor strength 5/5 in all extremities. Sensory grossly intact. Cerebellar exam normal. Normal gait. Psych: Awake, alert, with orientation to person, place and time. Behavior, mood, and affect are within normal limits. 07:50 ENT: Cotton foreign body noted to right external auditory canal, no drainage. Vital Signs: 07:33 BP 136 / 87; Pulse 79; Resp 16; Temp 97.8; Pulse Ox 99% ; Weight 89.81 kg; Height 5 ft. ll1 2 in. ; Pain 310; 07:33 Body Mass Index 36.21 (89.81 kg, 157.48 cm) ll1 07:33 Pain Scale: Adult ll1 Procedures: 07:50 Foreign Body Removal: Cotton swab, from the right ear canal, by using alligator clamps, rt Dressing: none, The patient tolerated the removal well, Post assessment reveals that the tympanic membrane is intact, with no residual foreign body. MDM: 07:43 Patient medically screened. rt 07:50 Differential Diagnosis Foreign body, ruptured TM. Data reviewed: vital signs, nurses rt notes. Counseling: I had a detailed discussion with the patient and/or guardian regarding the historical points, exam findings, and any diagnostic results supporting the discharge/admit diagnosis, the need for outpatient follow up, to return to the emergency department if symptoms worsen or persist or if there are any questions or concerns that arise at home. Response to treatment: the patient's symptoms have resolved after treatment. Administered Medications: No medications were administered Disposition Summary: 11/27/23 07:49 Discharge Ordered Notes: Location: Home rt Problem: new rt Symptoms: are resolved rt Condition: Stable rt Diagnosis - Foreign body in right ear rt Followup: rt - With: Private Physician - When: As needed - Reason: Discharge Instructions: - Discharge Summary Sheet rt - Ear Foreign Body rt Forms: - Medication Reconciliation Form rt - Thank You Letter rt - Antibiotic Education rt - Prescription Opioid Use rt - Patient Portal Instructions rt - Leadership Thank You Letter rt Signatures: Tee El RN RN ll1 Paulino John MD MD rt
--- NOTE | 2023-11-27 07:50 | ER ---
Nurse's Notes [facility] Name: Beatriz Chapman Age: 48 yrs Sex: Female : 1975 Arrival Date: 11/27/2023 Time: 07:20 Bed 13 Private MD: Diagnosis: Foreign body in right ear Presentation: 11/26 07:33 Chief complaint: Patient states: Cotton from Q tip stuck in R ear since 0515 AM. ll1 Coronavirus screen: Vaccine status: Patient reports receiving the 2nd dose of the covid vaccine. Client denies travel out of the [place] in the last 14 days. At this time, the client does not indicate any symptoms associated with coronavirus-19. Ebola Screen: Patient denies travel to an Ebola-affected area in the 21 days before illness onset. Initial Sepsis Screen: Does the patient meet any 2 criteria? No. Patient's initial sepsis screen is negative. Does the patient have a suspected source of infection? No. Patient's initial sepsis screen is negative. Risk Assessment: Do you want to hurt yourself or someone else? Patient reports no desire to harm self or others. Onset of symptoms was November 27, 2023. 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 - Social history:: Smoking status: Patient denies any tobacco usage or history of. Screenin:35 [facility] ED Fall Risk Assessment (Adult) History of falling in the last 3 months, ll1 including since admission No falls in past 3 months (0 pts) Confusion or Disorientation No (0 pts) Intoxicated or Sedated No (0 pts) Impaired Gait No (0 pts) Mobility Assist Device Used No (0 pt) Altered Elimination No (0 pt) Score/Fall Risk Level 0 - 2 = Low Risk Oriented to surroundings, Hourly rounding (assess needs \T\ fall precautionary measures) done. Abuse screen: Denies threats or abuse. Nutritional screening: No deficits noted. Tuberculosis screening: No symptoms or risk factors identified. Assessment: 07:35 General: Appears in no apparent distress. Behavior is calm, cooperative, appropriate ll1 for age. Pain: Complains of pain in right ear Quality of pain is described as aching. EENT: Reports pain in right ear cotton stuck in ear canal. 07:58 Reassessment: No changes from previously documented assessment. Patient and/or family ll1 updated on plan of care and expected duration. Pain level reassessed. Patient is alert, oriented x 3, equal unlabored respirations, skin warm/dry/pink. Vital Signs: 07:33 BP 136 / 87; Pulse 79; Resp 16; Temp 97.8; Pulse Ox 99% ; Weight 89.81 kg; Height 5 ft. ll1 2 in. ; Pain 3/10; 07:33 Body Mass Index 36.21 (89.81 kg, 157.48 cm) ll1 07:33 Pain Scale: Adult ll1 ED Course: 07:23 Patient arrived in ED. mg5 07:32 Arm band placed on Patient placed in an exam room, on a stretcher. ll1 07:34 Paulino John MD is Attending Physician. rt 07:35 Triage completed. ll1 07:36 Patient has correct armband on for positive identification. Bed in low position. Call ll1 light in reach. Provided Education on: ER procedures and process. Cardiac monitoring not applicable on this patient. 07:58 No provider procedures requiring assistance completed. Patient did not have IV access ll1 during this emergency room visit. Administered Medications: No medications were administered Medication: 07:36 VIS not applicable for this client. ll1 Outcome: 07:49 Discharge ordered by . rt 07:58 Patient left the ED. ll1 07:58 Discharged to home ambulatory, ll1 07:58 Condition: stable 07:58 Discharge instructions given to patient, Instructed on discharge instructions, follow up and referral plans. Demonstrated understanding of instructions, follow-up care, Signatures: Tee El RN RN ll1 Paulino John MD MD rt Debi Lee mg5
[2023-11-27 08:11] VITALS: BP 136/87; TEMP 97.8; O2SAT 99
== END ==
LOC: ER 07:20
PROC: 09C3XZZ Extirpation of Matter from Right External Auditory Canal, External Approach (ICD-10-PCS; principal; 2023-11-27)
DX: T16.1XXA Foreign body in right ear, initial encounter (principal); Z88.0 Allergy status to penicillin